=== PATIENT | male | born 1960 | race Caucasian/White ===

== ENCOUNTER 2024-12-11 06:37 | Day surgery (SDC) | payer OTHER, SELFPAY ==
--- NOTE | 2024-12-03 15:08 | HPS.HSE ---
Family Physician
-
Family Physician: NO INTERVIEW UNKNOWN
Chief Complaint
-
Persistent atrial fibrillation.
History of Present Illness
The patient is a 64 year old male presenting today for persistent atrial fibrillation. His most recent cardiac monitoring in August 2024 revealed a 100% atrial fibrillation burden. He does report symptoms of fatigue, palpitations, and
lightheadedness in the past, all likely associated with this diagnosis. He is on current pharmacological therapy with Sotalol. Although he has been compliant with this medication, he still remains in atrial fibrillation. He is on Eliquis for oral
anticoagulation due to a CHADS-VASc of 3. He notes that his current symptoms associated with his arrhythmia greatly interfere with his activities of daily living and overall impact his quality of life. He is interested in pursuing pulmonary vein
isolation for further arrhythmia management. Prior to proceeding with his ablation, he must first undergo a transesophageal echocardiogram to definitively rule out a left atrial appendage thrombus. He denies any complaints today such as chest pain,
shortness of breath, nausea, vomiting, diarrhea, cough, sore throat, or fever.
Medical History
Past Medical History
Past Medical History: Reports Other
Additional Past Medical History:
1. Persistent atrial fibrillation, pharmacological therapy with Sotalol and oral anticoagulation with Eliquis.
2. Paroxysmal atrial flutter, status post CTI RFA 2010 and 2014.
3. Hypertension.
4. PVCs, asymptomatic.
5. Mild left ventricular hypertrophy.
6. Venous varicosities.
7. Pulmonary nodule.
8. Obstructive sleep apnea, compliant with CPAP.
9. Non-insulin dependent diabetes, diet controlled.
10. Colon polyps.
11. Fatty liver disease.
12. Reported hepatitis, approximately 50 years ago.
13. Subacute right occipital CVA, 06/2021, without residual deficits.
14. History of TIA.
15. Balance difficulties.
16. Osteoarthritis, status post left total hip arthroplasty 2020.
17. ADD.
18. Insomnia.
19. Obesity, BMI 30.1.
Past Surgical History: Reports Other
Additional Past Surgical History:
1. CTI RFA x2.
2. Left total hip arthroplasty.
3. Right knee ligament reconstruction.
4. Colonoscopy.
Social History
Tobacco: Non-smoker
Alcohol: None
Personal:
Living: Alone (in a 1 story home. )
Family History
Family History: Not pertinent
Allergies / Home Medications
Allergy/Medication List:
Home medications:
1. Apixaban 5 mg p.o. twice a day.
2. Sotalol 80 mg p.o. twice a day.
3. Lorazepam 0.5 mg p.o. at bedtime.
Allergies: No known allergies.
Review of Systems
-
A 12 point ROS was completed and negative except as noted: Yes
Physical Exam
Vital Signs
Blood pressure 118/64. Heart rate 54. Respirations 18. Pulse ox 99% on room air.
Height 6 feet, 0.5 inches. Weight 102.1 kg. BMI 30.1.
Physical Exam
General: Well Developed, Well Nourished and No Apparent Distress
HEENT: NormoCephalic, Moist mucous membranes, Atraumatic and PERRLA
Respiratory: Clear
Cardiac: Irregular Rhythm
GI: Soft, Non Tender and Non Distended
Musculoskeletal: No Edema and Normal Gait & Station
Skin: Warm and Dry
Neuro: AO x 3 and Nonfocal/grossly intact
Laboratory Results
-
DIAGNOSTIC STUDIES as of 11/25/2024: White blood cell count 6.9. Hemoglobin 14.4. Platelet count 221,000. PT 15.7. INR 1.22. Sodium 139. Potassium 4.9. BUN 22. Creatinine 0.9. Glucose 98. Calcium 9.8. Magnesium 1.8. AST 26. ALT 21. Albumin 4.7. Type
and screen A negative.
EKG 11/25/2024: Atrial fibrillation with slow ventricular response.
Stress echocardiogram 06/25/2017: Resting images revealed normal left ventricular size and function. No regional wall motion abnormalities were seen. The estimated ejection fraction is 55-60%. On the immediate post exercise images, there is normal
left ventricular augmentation and wall thickening. No regional wall motion abnormalities are seen. No evidence of myocardial ischemia. Estimated ejection fraction is 65-70%.
Echocardiogram 06/14/2017: Mild concentric LVH with preserved systolic function. Ejection fraction 55-60%. Otherwise normal echocardiogram. The study is similar to the transesophageal echo of June 2014.
Impression/Plan
-
IMPRESSION/PLAN:
1. Persistent atrial fibrillation: The patient is in need of a pulmonary vein isolation; however, prior to his ablation, he will proceed with a transesophageal echocardiogram to definitively rule out a left atrial appendage thrombus. This will take
place on 12/11/[address] Nolberto Hare. The benefits and risks of the procedure have been explained to the patient. The patient understands these risks and wishes to proceed. He is aware to continue his Eliquis uninterrupted prior to his
procedure.
== END 2024-12-11 10:15 | disposition home or self-care (01) ==
LOC: CATH 06:37
PROVIDERS: ATTENDING PHYSICIAN Internal Medicine Cardiovascular Disease; FAMILY PHYSICIAN Family Medicine; OTHER PHYSICIAN Internal Medicine Cardiovascular Disease
DX: I48.19 Other persistent atrial fibrillation (principal); E11.9 Type 2 diabetes mellitus without complications; E66.9 Obesity, unspecified; G47.33 Obstructive sleep apnea (adult) (pediatric); I10 Essential (primary) hypertension; I70.0 Atherosclerosis of aorta; K76.0 Fatty (change of) liver, not elsewhere classified; M19.90 Unspecified osteoarthritis, unspecified site; Z79.01 Long term (current) use of anticoagulants; Z79.84 Long term (current) use of oral hypoglycemic drugs; Z79.899 Other long term (current) drug therapy; Z86.0100 Personal history of colon polyps, unspecified; Z86.73 Personal history of transient ischemic attack (TIA), and cerebral infarction without residual deficits; Z98.890 Other specified postprocedural states; I48.92 Unspecified atrial flutter; R91.1 Solitary pulmonary nodule; I83.90 Asymptomatic varicose veins of unspecified lower extremity
CPT/HCPCS: 93312; 93320; 93325

== ENCOUNTER 2024-12-12 07:37 | Day surgery (SDC) | payer OTHER, SELFPAY ==
[2024-11-25 09:59] VITALS: BMI 30.1
--- NOTE | 2024-11-25 10:00 | HPS.HSE ---
Family Physician
-
Family Physician: Melany Trent MD
Chief Complaint
-
Persistent atrial fibrillation.
History of Present Illness
The patient is a 64 year old male presenting today for persistent atrial fibrillation. His most recent cardiac monitoring in August 2024 revealed a 100% atrial fibrillation burden. He does report symptoms of fatigue, palpitations, and
lightheadedness in the past, all likely associated with this diagnosis. He is on current pharmacological therapy with Sotalol. Although he has been compliant with this medication, he still remains in atrial fibrillation. He is on Eliquis for oral
anticoagulation due to a CHADS-VASc of 3. He notes that his current symptoms associated with his arrhythmia greatly interfere with his activities of daily living and overall impact his quality of life. He is interested in pursuing pulmonary vein
isolation for further arrhythmia management. He denies any complaints today such as chest pain, shortness of breath, nausea, vomiting, diarrhea, cough, sore throat, or fever.
Medical History
Past Medical History
Past Medical History: Reports Other
Additional Past Medical History:
1. Persistent atrial fibrillation, pharmacological therapy with Sotalol and oral anticoagulation with Eliquis.
2. Paroxysmal atrial flutter, status post CTI RFA 2010 and 2014.
3. Hypertension.
4. PVCs, asymptomatic.
5. Mild left ventricular hypertrophy.
6. Venous varicosities.
7. Pulmonary nodule.
8. Obstructive sleep apnea, compliant with CPAP.
9. Non-insulin dependent diabetes, diet controlled.
10. Colon polyps.
11. Fatty liver disease.
12. Reported hepatitis, approximately 50 years ago.
13. Subacute right occipital CVA, 06/2021, without residual deficits.
14. History of TIA.
15. Balance difficulties.
16. Osteoarthritis, status post left total hip arthroplasty 2020.
17. ADD.
18. Insomnia.
19. Obesity, BMI 30.1.
Past Surgical History: Reports Other
Additional Past Surgical History:
1. CTI RFA x2.
2. Left total hip arthroplasty.
3. Right knee ligament reconstruction.
4. Colonoscopy.
Social History
Tobacco: Non-smoker
Alcohol: None
Personal:
Living: Alone (in a 1 story home. )
Family History
Family History: Not pertinent
Allergies / Home Medications
Allergy/Medication List:
Home medications:
1. Apixaban 5 mg p.o. twice a day.
2. Sotalol 80 mg p.o. twice a day.
3. Lorazepam 0.5 mg p.o. at bedtime.
Allergies: No known allergies.
Review of Systems
-
A 12 point ROS was completed and negative except as noted: Yes
Physical Exam
Vital Signs
Blood pressure 118/64. Heart rate 54. Respirations 18. Pulse ox 99% on room air.
Height 6 feet, 0.5 inches. Weight 102.1 kg. BMI 30.1.
Physical Exam
General: Well Developed, Well Nourished and No Apparent Distress
HEENT: NormoCephalic, Moist mucous membranes, Atraumatic and PERRLA
Respiratory: Clear
Cardiac: Irregular Rhythm
GI: Soft, Non Tender and Non Distended
Musculoskeletal: No Edema and Normal Gait & Station
Skin: Warm and Dry
Neuro: AO x 3 and Nonfocal/grossly intact
Laboratory Results
-
DIAGNOSTIC STUDIES as of 11/25/2024: White blood cell count 6.9. Hemoglobin 14.4. Platelet count 221,000. PT 15.7. INR 1.22. Sodium 139. Potassium 4.9. BUN 22. Creatinine 0.9. Glucose 98. Calcium 9.8. Magnesium 1.8. AST 26. ALT 21. Albumin 4.7. Type
and screen A negative.
EKG 11/25/2024: Atrial fibrillation with slow ventricular response.
Stress echocardiogram 06/25/2017: Resting images revealed normal left ventricular size and function. No regional wall motion abnormalities were seen. The estimated ejection fraction is 55-60%. On the immediate post exercise images, there is normal
left ventricular augmentation and wall thickening. No regional wall motion abnormalities are seen. No evidence of myocardial ischemia. Estimated ejection fraction is 65-70%.
Echocardiogram 06/14/2017: Mild concentric LVH with preserved systolic function. Ejection fraction 55-60%. Otherwise normal echocardiogram. The study is similar to the transesophageal echo of June 2014.
Impression/Plan
-
IMPRESSION/PLAN:
1. Persistent atrial fibrillation: The patient is in need of a pulmonary vein isolation with Dr. Gabe Meade on 12/12/2024. Given he would like to avoid IV contrast, he will undergo a transesophageal echocardiogram to definitively rule out a left
atrial appendage thrombus prior on 12/11/[address] Nolberto Hare. The benefits and risks of both procedures have been explained to the patient. The patient understands these risks and wishes to proceed. He is aware to continue Eliquis
uninterrupted prior to his ablation. He will take no medications the morning of his procedure.
[2024-11-25 10:52] LABS: Hematocrit 44.9 % (39.0-52.0); Hemoglobin 14.4 g/dL (13.0-18.0); Mean Corp Hgb Conc. 32.1 g/dL (33.0-37.0); Mean Corpuscular Volume 82.7 fL (80.0-94.0); Nucleated Red Blood Cells % 0 % (-); Platelet Count 221 10^3/uL (130-400); Red Cell Dist. Width 14.4 % (11.5-14.5)
[2024-11-25 10:58] LABS: INR 1.22; PT 15.7 Sec (11.4-14.6)
[2024-11-25 11:27] LABS: ALT (SGPT) 21 U/L (0-50); AST (SGOT) 26 U/L (17-59); Albumin 4.7 g/dl (3.5-5.0); Alkaline Phosphatase 48 U/L (38-126); Blood Urea Nitrogen 22 mg/dl (9-20); Calcium 9.8 mg/dl (8.4-10.2); Carbon Dioxide 26 mmol/L (22-30); Chloride 106 mmol/L (98-107); Estimated Creatinine Clearance 91 ml/min; Glucose 98 mg/dl (70-99); Magnesium 1.8 mg/dl (1.6-2.3); Potassium 4.9 mmol/L (3.5-5.1); Sodium 139 mmol/L (135-145); Total Protein 7.6 g/dl (6.3-8.2); eGFR > 60.00
[2024-12-12] VITALS (23 sets, daily range): BP systolic 75–140; BP diastolic 41–86; PULSE 85; BMI 30.1
[2024-12-12 09:18] LABS: Glucose - Point of Care 110 mg/dl (70-99)
[2024-12-12 13:02] LABS: ACT-LR - POC 297 Seconds (116-155)
[2024-12-12 13:21] LABS: ACT-LR - POC 321 Seconds (116-155)
[2024-12-12 13:49] LABS: ACT-LR - POC 377 Seconds (116-155)
[2024-12-12 14:19] LABS: ACT-LR - POC 234 Seconds (116-155)
--- NOTE | 2024-12-12 14:28 | ITS.CL.ABL ---
[employer] - Ablation
Ablation
Procedure Report:
Primary Cardiology: Dr Kp Álvarez
Primary Care: Dr Melany Trent
Procedure Date: 12/12/2024
Patient History:
Patient is a pleasant 64-year-old male with a past medical history significant for persistent atrial fibrillation, paroxysmal atrial flutter status post RFA , hypertension, history of CVA, PVCs, sleep apnea.
See H&P for complete details.
Indication:
Symptomatic persistent atrial fibrillation
Symptomatic paroxysmal atrial flutter
Arrhythmia Specific History:
Prior Medical Therapies for Rate and Rhythm Control:
[ ] Beta-kalani
[ ] Calcium channel-kalani
[ ] Amiodarone
[ ] Dronederone
X Sotalol
[ ] Flecainide
[ ] Dofetilide
X Options limited by bradycardia
[ ] Options limited by comorbid renal disease
Prior Procedural Therapies for AF/AFL:
[ ] Cardioversion
[ ] Pulmonary Vein Isolation
[ ] Posterior Wall Isolation
[ ] Additional lines (Specify)
[ ] Surgical Merritt-MAZE or PVI (Specify)
Procedure Performed:
X AF ablation procedure (18563) -- includes LA/CS pacing, trans-septal, 3D mapping, + ICE
[ ] +IV drug (38703)
[ ] +Other Arrhythmia (05737)
X +Other AF Line/ablation (78176) -- Floor line, roof life, posterior wall isolation
Risks and expected recovery has been explained in detail. Alternative options have been explored, and in a shared-decision making fashion we have decided that this was the most appropriate procedure.
Method
NPO status confirmed. Grounding pad applied. Defibrillator pads applied. Continuous surface ECG, pulse oximetry, and blood pressure were monitored. Procedure was performed under general anesthesia, with anesthesia services.
Both groins were clipped, prepped with Chloraprep, and draped in sterile fashion. Time out was called. Local anesthesia administered with bupivacaine. The right femoral vein was accessed for catheter placement, using ultrasound guidance (images
saved to record), micro-puncture needle/wire, and modified seldinger technique. 3 sheaths were placed. The following catheters were used:
[ ] Tacticath SE (D/F Curve) ablation catheter
X Viewflex 9Fr ICE catheter
X Inquiry decapolar 6Fr diagnostic catheter
[ ] CRD Hex 6Fr
X Agilis 11.5 Fr Steerable Sheath
X Sphere-9 Ablation catheter
[ ] Advisor HD Grid Mapping Catheter, SE
[ ] Acuson AcuNav 8 Fr ICE catheter
[ ] Other: [ ]
A multipolar catheter were advanced to the coronary sinus. Intracardiac ultrasound (ICE) was carefully advanced into the right atrium to guide sheath placement over a J-wire, catheter placement, guide trans-septal puncture, identify potential
complications, identify anatomic structures and ensure proper contact between ablation catheter and tissue.
Heparin was given to achieve and maintain a target ACT of 300-400 seconds throughout the procedure.
Trans-septal access was performed under ICE guidance. The trans-septal puncture was performed with a SafeSept wire through a Brockenbrough needle assembly through the steerable sheath. The wire was visualized as it entered the LSPV and system
advanced under ICE guidance and fluoroscopy into the LA. The Brockenbrough needle assembly, SafeSept wire and sheath dilator were removed under negative pressure. LA pressure was measured and recorded.
ICE and 3D mapping was performed to identify relevant cardiac structures. A careful 3D map was created to assess for regions of low-voltage and abnormal electrogram signals using Sphere-9 catheter. Additional mapping was performed as outlined below.
Prior to ablation, glycopyrrolate was provided. Sphere 9 catheter was advanced into the left atrium. Electroanatomic mapping was performed using the Sphere 9 catheter. Pulmonary vein isolation was performed using pulsed field ablation in a
circumferential manner. Contact was visualized via EAM, ICE, fluoroscopy, and EGM signals.
After accomplishing pulmonary venous isolation, mapping identified additional areas likely to be extra PV contributors to atrial fibrillation. These areas demonstrated patchy low voltage as well as complex fractionated electrograms. These areas can
be sites for the formation of rotors which can drive and maintain atrial fibrillation. These areas are known to be significant contributors to initiation and perpetuation of atrial fibrillation.
Additional energy applications/additional ablation sets targeted extra PV contributors to atrial fibrillation.
Targets for additional PFA ablation included: LA posterior wall targeted with pulsed electric field energy isolating the posterior wall of the left atrium. Posterior wall isolation was performed by aforementioned methods using Sphere-9 catheter.
After ablation of the posterior wall, targets remained including:
- Inferior LA floor
- Anterior LA roof
- The ridge of tissue between the left atrial appendage and the left sided pulmonary veins (Ligament of Remy)
These areas were ablated using pulsed electric field energy eliminating the extra PV contributors to atrial fibrillation.
During ablation, patient had yazidism of sinus rhythm spontaneously. Following completion of lesions, a post-ablation voltage/activation map was performed in sinus rhythm. Entrance and exit block were confirmed for each vein and the posterior
wall.
Catheter and sheath were removed from the left atrium and post-ablation intracardiac echo evaluation was consistent with pre-ablation with no changes and no pericardial effusion and there is no left atrial thrombus or left ventricle thrombus seen.
Electroanatomic mapping under CS pacing within the right atrium demonstrated persistent CTI ablation line. Bidirectional block was confirmed. Electrophysiology study was performed. No arrhythmias were induced. Hemostasis was obtained with
Vascade for each sheath and with manual pressure. Protamine was used for reversal.
Estimated Blood Loss
5 mL
Complications
None
Fluoroscopy: 2.8 minutes; 22.28 mGy; DAP 2.77
LA Pressure: Pre 17 mmHg, post 19 mmHg
Baseline Intervals:
Rhythm: AF
QRS: 131 ms
QT: 514 ms
Post-Procedure Intervals:
MD: 191 ms
QRS: 109 ms
QT: 486 ms
QTc: 425 ms
AVWB: 810 ms
Recommendations
- Bedrest with straight-leg precautions as ordered
- Anticipate same day discharge if patient meeting clinical metrics
- Resume home medications as indicated
- Ok to resume anticoagulation tonight if patient and groin sites stable
- PPI daily for 30 days
- Plan for follow-up in office as scheduled
� Plan to discontinue sotalol at the 3-month office visit
Gabe Meade DO, FACC, RS
Clinical Cardiac Youth Leader
cc: Dr Kp Álvarez; Dr Melany Trent
[2024-12-12 15:14] LABS: Glucose - Point of Care 104 mg/dl (70-99)
--- NOTE | 2024-12-12 17:58 | PTCARENOTE ---
Patient received form the lab clerk. NSR on telemetry. VSS, Right groin site CDI and soft, +2 DP. Eating dinner, HOB elevated. VSS, call garcia in reach
[2024-12-12] MEDS: ANESTHETIC LOZENGE 1 LOZENGE PO (18:15)
[2024-12-12] MEDS: ELIQUIS 5 MG PO (20:48)
[2024-12-12] MEDS: ATIVAN 0.5 MG PO (22:20)
--- NOTE | 2024-12-13 00:46 | PTCARENOTE ---
Assumed care of pt at change of shift. pt OOB in chair. SB on tele, HR 40-50's. pt denies any CP or SOB. Right groin site C.D.I. No bleeding or hematoma noted at this time. pt ambulatory in the hallway. Afib packet given. RT applied CPAP to pt.
Encouraged pt to call RN with any questions/concerns. Call garcia within reach.
[2024-12-13 02:57] VITALS: BP 100/62
[2024-12-13 03:33] LABS: Hematocrit 40.2 % (39.0-52.0); Hemoglobin 13.0 g/dL (13.0-18.0); Mean Corp Hgb Conc. 32.3 g/dL (33.0-37.0); Mean Corpuscular Volume 82.7 fL (80.0-94.0); Platelet Count 183 10^3/uL (130-400); Red Cell Dist. Width 14.4 % (11.5-14.5)
[2024-12-13 03:56] LABS: Blood Urea Nitrogen 16 mg/dl (9-20); Calcium 9.2 mg/dl (8.4-10.2); Carbon Dioxide 21 mmol/L (22-30); Chloride 111 mmol/L (98-107); Estimated Creatinine Clearance 117 ml/min; Glucose 123 mg/dl (70-99); Magnesium 1.8 mg/dl (1.6-2.3); Potassium 4.4 mmol/L (3.5-5.1); Sodium 139 mmol/L (135-145); eGFR > 60.00
--- NOTE | 2024-12-13 07:22 | W.PN.CARDCBS ---
Today's Communication / Plan
-
Continue eliquis
Stop sotalol
Stable for DC from CV standpoint
Follow-up with Dr Álvarez/Miley as scheduled
Impression / Plan
-
PCP: Dr Trent
Operator Catalyst Concentration: Dr Álvarez
Impression:
Atrial fibrillation, persistent
- [id number]: 3 (hypertension, CVA). Eliquis 5 mg twice daily for stroke risk reduction
- Prev. on Sotalol 80 mg twice daily; DC 12/12/2024 due to bradycardia
- s/p PFA PVI, floor line, roof line, PWI with Affera/Sphere-9 on 12/12/2024
Atrial flutter, paroxysmal
- s/p CTI RFA 2014
- Persistent CTI bidirectional block on EPS 12/12/2024
Hypertension
TAISHA on CPAP
H/o CVA
PVC
Impression:
Patient s/p ablation on 12/12/2024; patient monitored overnight due to bradycardia and hypotension; hypotension resolved, bradycardia asymptomatic and now at baseline
Continue Eliquis
Stop Sotalol
Groin precautions and post-procedure care reviewed with patient
Follow-up with Miley Adams as scheduled
Stable for DC from CV standpoint
Progress Note - Operator [employer]yst Concentration
Subjective
Date of Service: December 13, 2024
Patient seen and examined this morning. No acute events overnight. Patient resting comfortable in chair. Denies cp, sob, palpitations, lh, dizziness, near syncope, syncope, or weakness.
Telemetry shows SB/SR, rare PAC/PVC; no AVB
Objective
Labs:
12/13/24 03:07
12/13/24 03:07
Labs
Hgb 13.0 g/dL (13.0-18.0) 12/13/24 03:07
Hct 40.2 % (39.0-52.0) 12/13/24 03:07
Plt Count 183 10^3/uL (130-400) 12/13/24 03:07
PT 15.7 Sec (11.4-14.6) H 11/25/24 10:31
INR 1.22 11/25/24 10:31
Sodium 139 mmol/L (135-145) 12/13/24 03:07
Potassium 4.4 mmol/L (3.5-5.1) 12/13/24 03:07
BUN 16 mg/dl (9-20) 12/13/24 03:07
Creatinine 0.7 mg/dL (0.7-1.3) 12/13/24 03:07
Glucose 123 mg/dl (70-99) H 12/13/24 03:07
Vital Signs and I&O:
Vital Signs
Temp Pulse Resp BP Pulse Ox
97.5 F 48 18 100/62 98
12/13/24 02:57 12/13/24 06:00 12/13/24 02:57 12/13/24 02:57 12/13/24 02:57
Vital Signs
Temp Pulse Resp BP Pulse Ox
97.5 F 48 18 100/62 98
12/13/24 02:57 12/13/24 06:00 12/13/24 02:57 12/13/24 02:57 12/13/24 02:57
Intake & Output
12/11/24 12/12/24 12/13/24 12/14/24
06:59 06:59 06:59 06:59
Intake Total 2860 / 2860
Output Total 500 / 500
Balance 2360 / 2360
Physical Exam
Physical Exam
GENERAL: no acute distress
EYE: sclera anicteric
NECK: Supple, no JVD, no carotid bruit appreciated
ENT: normal nose, moist mucosal membranes
CARDIAC: Regular rate and rhythm, +S1/S2, no murmur, rubs, or gallops
CHEST/PULMONARY: Normal effort, clear breath sounds
ABDOMEN: Soft, without focal tenderness or distention
NEUROLOGICAL: Alert and oriented x3
SKIN: Warm and dry, no rash; right groin site c/d/i, soft non-tender, no swelling
PSYCH: Normal and appropriate interaction.
[2024-12-13 07:34] VITALS: BP 101/62
[2024-12-13 07:35] VITALS: BP 101/62
--- NOTE | 2024-12-13 07:35 | W.DS.TRANS ---
DC Summary - [employer]
-
Discharge Instructions:
Discharge Diagnosis/Procedures Atrial fibrillation post ablation
Diet Low Sodium
Driving Restrictions No driving for 24 hours
Instructions: Pantoprazole
Stand-Alone Forms: DC Instructions- Cath/EP Lab
Changes to Home Medications: Yes
Discharge Medications:
DC Medications w/original date entered in [facility]
apixaban 5 mg tablet (Eliquis) 5 mg PO BID 11/21/24
lorazepam 1 mg tablet 0.5 mg PO HS 11/25/24
pantoprazole 40 mg tablet,delayed release (Protonix) 40 mg PO DAILY #30 tabs 12/12/24
Home Medication Changes
Sotalol stopped
Pending Results: No
--- NOTE | 2024-12-13 07:41 | W.PN.UPDATE ---
Update Note
Progress Note Update
Right groin dressing removed. No hematoma or bruit. Minimal ecchymosis, nontender. Groin precautions reviewed.
--- NOTE | 2024-12-13 08:30 | PTCARENOTE ---
Right groin site dressing removed by cardiology. Right groin slightly ecchymotic to the left of puncture site. No bleeding, no hematoma noted. Ambulatory in [place]. Denies pain or discomfort. Monitor showing sinus raquel.
[2024-12-13] MEDS: ELIQUIS 5 MG PO (08:39)
[2024-12-13 10:00] VITALS: BP 100/66
[2024-12-13 11:54] VITALS: BP 100/66
[2024-12-13 13:47] VITALS: BP 101/60
== END 2024-12-13 14:34 | disposition home or self-care (01) ==
LOC: CATH 07:37
PROVIDERS: Nurse Practitioner Adult Health; ATTENDING PHYSICIAN Internal Medicine Cardiovascular Disease; FAMILY PHYSICIAN Family Medicine; OTHER PHYSICIAN Internal Medicine Cardiovascular Disease
DX: I48.19 Other persistent atrial fibrillation (principal); I48.92 Unspecified atrial flutter; Z98.890 Other specified postprocedural states; I10 Essential (primary) hypertension; G47.33 Obstructive sleep apnea (adult) (pediatric); I83.90 Asymptomatic varicose veins of unspecified lower extremity; R91.1 Solitary pulmonary nodule; E11.9 Type 2 diabetes mellitus without complications; Z86.0100 Personal history of colon polyps, unspecified; K76.0 Fatty (change of) liver, not elsewhere classified; Z86.73 Personal history of transient ischemic attack (TIA), and cerebral infarction without residual deficits; M19.90 Unspecified osteoarthritis, unspecified site; E66.9 Obesity, unspecified; G47.00 Insomnia, unspecified; Z68.30 Body mass index [BMI] 30.0-30.9, adult
CPT/HCPCS: C1733; C1766; C1894; 36415; 80048; 80053; 82962; 83735; 85025; 85027; 85347; 85610; 86850; 86900; 86901; 93005; 93656; 93657; 94660; C1730; C1760